=== PATIENT | female | born 1945 | race Caucasian/White ===

== ENCOUNTER 2020-02-21 07:24 | Day surgery (SDC) | payer MEDICARE ==
[2020-02-21] MEDS ORDERED: Sodium Chloride 0.9% 10 ML Syringe FLUSH PRN (08:00)
--- NOTE | 2020-02-21 11:37 | OR ---
DATE OF PROCEDURE: 02/21/2020 SURGEON: Felisa Elias MD POSTOPERATIVE CARE: Postoperative care will be provided mainly at the [address] [place] [address] [facility] in conjunction with [facility]. PREOPERATIVE DIAGNOSIS: Cataract, left eye. POSTOPERATIVE DIAGNOSIS: Cataract, left eye. PROCEDURE: Phacoemulsification with intraocular lens placement, left eye. ANESTHESIA: Topical and intracameral. ESTIMATED BLOOD LOSS: Minimal. COMPLICATIONS: None. PATHOLOGY SPECIMENS: None. SURGICAL FINDINGS: None. INDICATION FOR PROCEDURE: The patient is a 74-year-old female with history of a visually significant cataract in the left eye, which interfered with activities of daily living. This consisted of a nuclear sclerosis cataract. Following careful discussion of the risks, benefits and alternatives to cataract extraction with intraocular lens placement including blindness and , the patient elected to proceed, and informed, written consent was obtained prior to the procedure. DESCRIPTION OF THE PROCEDURE: The patient was previously identified, and a armand placed above the left eye. All sources, including the patient, indicated that the left eye was the correct eye. The patient was subsequently taken to the operating room where standard monitors were applied. The patient was then prepped and draped in the usual sterile fashion for ophthalmic surgery. Attention was first directed at the 12 o'clock position where a paracentesis port was fashioned. Shugar solution followed by Viscoat was instilled into the eye. Attention was then directed to the 8:30 position where a triplanar incision was made in a near-clear manner using a keratome. A continuous capsulorrhexis was then made using a combination of the cystotome and Utrata forceps. Hydrodissection was achieved using a balanced salt solution, and the lens rotated nicely. Phacoemulsification was then done using a modified [id number] technique without complication. Phaco time was 9.38 CDE. The remaining cortex was removed using the irrigation/aspiration handpiece. Provisc was then instilled into the eye. A Technis lens, model [id number], at 17.5 diopters was then placed in the capsular bag using an Mcbain injector. The remaining viscoelastic was removed using the irrigation/aspiration forceps. All wounds were then checked and found to be watertight. The lid speculum and drapes were removed. Maxitrol ointment was placed in the patient's left eye, and the eye was shielded. The patient tolerated the procedure well. The patient was instructed to follow up tomorrow. All needle and sponge counts were correct at the end of the procedure. Felisa Elias MD /[id number]
== END 2020-02-21 10:10 | disposition home or self-care (01) ==
LOC: JP.SDS 07:24
PROVIDERS: ATTEND Ophthalmology
DX: H25.12 Age-related nuclear cataract, left eye (principal); J45.909 Unspecified asthma, uncomplicated; I10 Essential (primary) hypertension; Z91.040 Latex allergy status
CPT/HCPCS: 66984; V2632

== ENCOUNTER 2020-06-23 08:33 | Day surgery (SDC) | payer MEDICARE ==
[~2020-06-23 08:33] MED LIST: Lidocaine 1% with EPINEPHrine 1:100,000 50 ML MDV ONE; Sodium Chloride 0.9% 10 ML ONE; Sodium Tetradecyl Sulfate 1% 20 MG/2 ML SDV ONE
[2020-06-23] MEDS ORDERED: Sodium Chloride 0.9% 1,000 ML IV SCH (09:30)
[2020-06-23] MEDS ORDERED: fentaNYL 100 MCG/2 ML SDV ONE ×2 (09:48→10:59)
[2020-06-23] MEDS ORDERED: Propofol 200 MG/20 ML SDV ONE ×2 (09:48→10:59)
[2020-06-23] MEDS ORDERED: Midazolam 1 MG/ML 2 ML SDV ONE ×2 (09:48→10:59)
[2020-06-23] MEDS ORDERED: Lidocaine 1% w/EPINEPHrine 50 ML, Sodium Bicarbonate 5 MEQ in Sodium Chloride 0.9% 950 ML INJECT SCH (10:15)
[2020-06-23] MEDS ORDERED: Sodium Chloride 0.9% 10 ML SDV ONE (11:06)
--- NOTE | 2020-06-24 10:23 | OR ---
DATE OF PROCEDURE: 06/23/2020 SURGEON: Abbe Kidd MD PROCEDURE: 1. Radiofrequency ablation of left greater saphenous vein. 2. Sclerotherapy of left leg, multiple. 3. Compression wrapping (left leg). COMPLICATIONS: None. EVALUATION SPECIALIST: None. ANESTHETIC: MAC. PREPROCEDURE DIAGNOSIS: Venous insufficiency. POSTPROCEDURE DIAGNOSIS: Venous insufficiency. RISKS: Risks, benefits, alternatives, and limitations including, but not limited to, infection, bleeding, and DVT formation were explained to the patient, and they wished to proceed. DESCRIPTION OF PROCEDURE: The patient was placed in supine position. The left greater saphenous vein was accessed at the level of the greater saphenous vein. This was anesthetized with 1% lidocaine as the RFA probe was advanced to the saphenofemoral junction. Tumescent fluid was injected 1 cm jacket around this. Direct even pressure was held. The sheath was deployed proximally as the probe was deployed x2 proximally and distally and x1 in all other segments. The device was then removed. Direct pressure was held for 10 minutes. Dermabond was applied. Sclerotherapy was then performed on the left leg using 0.33% sodium tetradecyl. This was always drawn back to ensure intravascular injection only. There was 4 in the left ranging in length from 1 to 6 cm in size. Two-layer, 2-stage compression wrap was then performed in a [id number] gradient. The patient tolerated the procedure well. Abbe Kidd MD /[id number]
== END 2020-06-23 13:00 | disposition home or self-care (01) ==
LOC: JP.SDS 08:33
PROVIDERS: ATTEND Surgery
DX: I87.2 Venous insufficiency (chronic) (peripheral) (principal); I10 Essential (primary) hypertension; J45.30 Mild persistent asthma, uncomplicated; E78.5 Hyperlipidemia, unspecified; Z86.73 Personal history of transient ischemic attack (TIA), and cerebral infarction without residual deficits; Z98.890 Other specified postprocedural states; Z79.899 Other long term (current) drug therapy; Z79.82 Long term (current) use of aspirin; Z91.040 Latex allergy status; Z88.1 Allergy status to other antibiotic agents; Z88.8 Allergy status to other drugs, medicaments and biological substances; Z88.2 Allergy status to sulfonamides
CPT/HCPCS: 36470; 36475; J1642; J2250; J2704; J3010; J7030; J3490

== ENCOUNTER 2021-11-13 08:37 | Day surgery (SDC) | payer MEDICARE ==
[~2021-11-13 08:37] MED LIST changes: +Bupivacaine 0.5% 50 ML MDV ONE; -Sodium Chloride 0.9% 10 ML ONE; -Sodium Tetradecyl Sulfate 1% 20 MG/2 ML SDV ONE
[2021-11-13] MEDS ORDERED: ceFAZolin 2 GM in Sodium Chloride 0.9% 100 ML IV ONE (09:30)
[2021-11-13] MEDS ORDERED: ceFAZolin 2 GM in Premix Bag 1 BAG IV ONE (09:30)
[2021-11-13] MEDS ORDERED: Sodium Chloride 0.9% 1,000 ML IV SCH (09:30)
[2021-11-13] MEDS ORDERED: fentaNYL 250 MCG/5 ML SDV ONE (09:41)
[2021-11-13] MEDS ORDERED: Neostigmine Methylsulfate 1 MG/ML 5 ML Syringe ONE (09:42)
[2021-11-13] MEDS ORDERED: Ondansetron 4 MG/2 ML SDV ONE (09:42)
[2021-11-13] MEDS ORDERED: Glycopyrrolate 0.2 MG/ML 5 ML MDV ONE (09:42)
[2021-11-13] MEDS ORDERED: Rocuronium 50 MG/5 ML Vial ONE (09:42)
[2021-11-13] MEDS ORDERED: Dexamethasone 4 MG/ML SDV ONE (09:42)
[2021-11-13] MEDS ORDERED: Propofol 200 MG/20 ML SDV ONE (09:42)
[2021-11-13] MEDS ORDERED: metroNIDAZOLE/Normal Saline 500 MG in Premix Bag 1 BAG IV ONE (09:45)
[2021-11-13] MEDS ORDERED: Ropivacaine 35 ML, dexAMETHasone 8 MG, EPINEPHrine 0.4 MG, Sodium Chloride 0.9% 42.6 ML NERVRT SCH ×4 (10:35)
== END 2021-11-13 15:15 | disposition home or self-care (01) ==
LOC: JP.SDS 08:37
PROVIDERS: ATTEND Surgery
DX: K40.20 Bilateral inguinal hernia, without obstruction or gangrene, not specified as recurrent (principal); I10 Essential (primary) hypertension; J45.30 Mild persistent asthma, uncomplicated; E78.5 Hyperlipidemia, unspecified; Z79.899 Other long term (current) drug therapy; Z86.73 Personal history of transient ischemic attack (TIA), and cerebral infarction without residual deficits; Z91.040 Latex allergy status; Z88.2 Allergy status to sulfonamides; Z88.1 Allergy status to other antibiotic agents; Z88.8 Allergy status to other drugs, medicaments and biological substances
CPT/HCPCS: C1727; C1781; J0171; J0690; J1100; J2405; J2704; J2710; J2795; J3010; J3490; J7030

== ENCOUNTER 2023-03-07 11:34 | Emergency (ER) | payer MEDICARE ==
[2023-03-07] MEDS ORDERED: Acetaminophen 500 MG Tab PO ONE (12:07)
[2023-03-07] MEDS ORDERED: Sodium Chloride 0.9% 10 ML Syringe FLUSH PRN (12:07)
[2023-03-07] MEDS ORDERED: Sodium Chloride 0.9% 1,000 ML IV ONE (12:18)
[2023-03-07] MEDS ORDERED: Doxycycline 100 MG in Sodium Chloride 0.9% 100 ML IV ONE (12:18)
[2023-03-07 12:31] LABS: HEMATOCRIT 31.4 % (34.3-46.0); HEMOGLOBIN 10.4 g/dL (11.2-15.5); IMMATURE GRAN PERCENT AUTO 0.5 % (0.0-0.7); LYMPHOCYTES ABSOLUTE AUTO 0.14 K/uL (0.8-3.3); MEAN CORPUSCULAR HEMOGLOBIN 27.2 pg (31.6-35.5); MEAN CORPUSCULAR HGB CONC 33.1 g/dL (31.6-35.5); MEAN CORPUSCULAR VOLUME 82.2 fL (81.4-99.0); MONOCYTES ABSOLUTE AUTO 0.17 K/uL (0.20-0.90); MONOCYTES PERCENT AUTO 8.5 % (3.3-12.6); NEUTROPHILS ABSOLUTE AUTO 1.67 K/uL (1.0-7.6); PLATELET COUNT,PLT 59 K/uL (130-375); RED BLOOD CELL COUNT 3.82 M/uL (3.77-5.24)
[2023-03-07 12:32] LABS: IMMATURE GRAN ABSOLUTE AUTO 0.01 K/uL (0.00-0.23)
[2023-03-07 12:50] LABS: A/G RATIO 0.9 (1.2-2.2); ALANINE AMINOTRANSFERASE,ALT 125 U/L (12-78); ALKALINE PHOSPHATASE 133 U/L (46-116); ASPARTATE AMNIOTRANSFERASE,AST 144 U/L (15-37); BILIRUBIN TOTAL 1.3 mg/dL (0.2-1.0); BLOOD UREA NITROGEN,BUN 16 mg/dL (7-18); CARBON DIOXIDE,CO2 23 mmol/L (21-32); CHLORIDE,CL 99 mmol/L (100-108); EST CRCL DRUG DOSING (CG) 39.39 mL/min; ESTIMATED GFR 57 mL/min (>60); GLUCOSE RANDOM 111 mg/dL (74-106); POTASSIUM,K 3.4 mmol/L (3.6-5.2); PROTEIN TOTAL,TP 6.4 g/dL (6.4-8.2); SODIUM,NA 130 mmol/L (140-148)
[2023-03-07 12:55] LABS: ANION GAP 11.4 mmol/L (5.0-14.0)
[2023-03-07 12:56] LABS: LACTIC ACID 0.9 mmol/L (0.4-2.0)
[2023-03-07] MEDS ORDERED: Sodium Chloride 0.9% 500 ML IV ONE (13:06)
[2023-03-07 13:08] LABS: LYME AB IgG Negative (Negative)
[2023-03-07 13:10] LABS: LYME AB IgM Negative (Negative)
== END 2023-03-07 14:35 | disposition home or self-care (01) ==
LOC: JP.ED 11:34
DX: S20.361A Insect bite (nonvenomous) of right front wall of thorax, initial encounter (principal); R50.9 Fever, unspecified; E87.1 Hypo-osmolality and hyponatremia; E87.6 Hypokalemia; R79.89 Other specified abnormal findings of blood chemistry; E78.00 Pure hypercholesterolemia, unspecified; I10 Essential (primary) hypertension; J44.9 Chronic obstructive pulmonary disease, unspecified; D61.818 Other pancytopenia; Z86.73 Personal history of transient ischemic attack (TIA), and cerebral infarction without residual deficits; Z91.040 Latex allergy status; Z88.0 Allergy status to penicillin; Z88.2 Allergy status to sulfonamides; Z88.1 Allergy status to other antibiotic agents; Z20.822 Contact with and (suspected) exposure to COVID-19; Z88.8 Allergy status to other drugs, medicaments and biological substances; W57.XXXA Bitten or stung by nonvenomous insect and other nonvenomous arthropods, initial encounter
CPT/HCPCS: 36415; 80053; 83605; 84145; 85025; 86140; 86618; 86666; 86753; 87040; 96361; 96365; 99284; A9270; J3490; J7030

== ENCOUNTER 2023-04-21 06:18 | Day surgery (SDC) | payer MEDICARE ==
[2023-04-21] MEDS ORDERED: Sodium Chloride 0.9% 10 ML Syringe FLUSH PRN (06:45)
== END 2023-04-21 08:35 | disposition home or self-care (01) ==
LOC: JP.SDS 06:18
PROVIDERS: ATTEND Ophthalmology
DX: H26.9 Unspecified cataract (principal); I10 Essential (primary) hypertension; I25.10 Atherosclerotic heart disease of native coronary artery without angina pectoris; E78.5 Hyperlipidemia, unspecified; J45.909 Unspecified asthma, uncomplicated; I47.1 Supraventricular tachycardia; Z86.73 Personal history of transient ischemic attack (TIA), and cerebral infarction without residual deficits; Z88.2 Allergy status to sulfonamides; Z88.1 Allergy status to other antibiotic agents; Z88.8 Allergy status to other drugs, medicaments and biological substances; Z91.040 Latex allergy status
CPT/HCPCS: 66984; J3490; V2632

== ENCOUNTER 2024-07-04 06:35 | Day surgery (SDC) | payer MEDICARE ==
[2024-07-04] MEDS ORDERED: Propofol 200 MG/20 ML SDV ONE (07:09)
[2024-07-04] MEDS ORDERED: fentaNYL 50 MCG/ML SDV ONE (07:09)
[2024-07-04] MEDS: Lactated Ringers 1,000 ML IV SCH (07:24)
== END 2024-07-04 10:40 | disposition home or self-care (01) ==
LOC: JP.SDS 06:35
PROVIDERS: ATTEND Surgery
DX: K21.00 Gastro-esophageal reflux disease with esophagitis, without bleeding (principal); K22.89 Other specified disease of esophagus
CPT/HCPCS: 43239; 45330; J2704; J3010; J7120; 00813-QZ; 88305